=== PATIENT | female | born 2000 | race Native Hawaiian/Other Pacific Islander ===

== ENCOUNTER 2021-09-24 23:10 | Emergency (ER) | payer SELFPAY ==
[2021-09-24] MEDS ORDERED: METOCLOPRAMIDE 10 MG/2 ML INJ IV ONE (23:21)
[2021-09-24] MEDS ORDERED: HYDROmorphone 1 MG/1 ML INJ IV ONE ×2 (23:21→23:55)
[2021-09-24] MEDS ORDERED: SODIUM CHLORIDE 0.9% 1000 ML 1,000 ML IV ONE (23:21)
[2021-09-24] MEDS ORDERED: CLINDAMYCIN 600 MG/50 mL 600 MG/50 ML BAG IV ONE (23:22)
[2021-09-24] MEDS ORDERED: TETANUS,DIPH,PERTUSS(ACELL) VACCINE 0.5 ML SYRINGE IM ONE (23:22)
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
[2021-09-24 23:26] VITALS: BP 137/71
[2021-09-24 23:40] LABS: Basophils # (Auto) 0.1 K/mm3 (0.0-0.1); Basophils % (Auto) 0.6 % (0.0-1.8); Eosinophils # (Auto) 0.2 K/mm3 (0.0-0.4); Eosinophils % (Auto) 1.3 % (0.0-4.3); Hematocrit 39.8 % (30.3-42.9); Hemoglobin 13.9 gm/dl (10.1-14.3); Lymphocytes # (Auto) 4.2 K/mm3 (1.2-5.4); Lymphocytes % (Auto) 28.2 % (13.4-35.0); Mean Corpuscular HGB Conc 35 % (30-34); Mean Corpuscular Volume 91 fl (79-97); Monocytes # (Auto) 1.3 K/mm3 (0.0-0.8); Monocytes % (Auto) 9.1 % (0.0-7.3); Platelet Count 305 K/mm3 (140-440); Red Blood Count 4.39 M/mm3 (3.65-5.03); Red Cell Distribution Width 12.5 % (13.2-15.2)
[2021-09-24 23:53] LABS: INR 0.89 (0.87-1.13); Partial Thromboplastin Time 25.5 Sec. (24.2-36.6)
[2021-09-25] LABS: Alanine Aminotransferase 18 units/L (7-56); Albumin 4.1 g/dL (3.9-5); Blood Urea Nitrogen 6 mg/dL (7-17); Calcium 9.3 mg/dL (8.4-10.2); Hemolysis Index 2
[2021-09-25 00:05] LABS: BUN/Creatinine Ratio 12
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
== END 2021-09-25 00:10 | disposition short-term general hospital (02) ==
LOC: ED 23:10
DX: S41.132A Puncture wound without foreign body of left upper arm, initial encounter (principal); S81.831A Puncture wound without foreign body, right lower leg, initial encounter; S21.132A Puncture wound without foreign body of left front wall of thorax without penetration into thoracic cavity, initial encounter; Z88.0 Allergy status to penicillin; W34.00XA Accidental discharge from unspecified firearms or gun, initial encounter; Y93.89 Activity, other specified; Y92.89 Other specified places as the place of occurrence of the external cause; Y99.8 Other external cause status
CPT/HCPCS: 36415; 71045; 72170; 73060; 73552; 80053; 82550; 84702; 85025; 85610; 85730; 90471; 90715; 96365; 96375; 99291; J1170; J2765; J7030; J7502; 80320; Q0162; G0480